=== PATIENT | male | born 1960 | race Hispanic/Latino ===

== ENCOUNTER 2019-03-03 16:08 | Emergency (ER) | payer SELFPAY ==
[2019-03-03] MEDS ORDERED: ACETAMINOPHEN EXTRA STRENGTH 500 MG TABLET ONE (16:44)
[2019-03-03] MEDS ORDERED: TETANUS/DIPHTHERIA TOXOID [ADULT] 0.5 ML VIAL IM ONE (16:45)
== END 2019-03-03 17:02 | disposition left against medical advice (07) ==
LOC: EDH 16:08
DX: S05.12XA Contusion of eyeball and orbital tissues, left eye, initial encounter (principal); H11.32 Conjunctival hemorrhage, left eye; Z72.0 Tobacco use; Y04.0XXA Assault by unarmed brawl or fight, initial encounter; Y93.89 Activity, other specified; Y92.488 Other paved roadways as the place of occurrence of the external cause; Y99.8 Other external cause status
CPT/HCPCS: 90714